=== PATIENT | male | born 1995 | race Caucasian/White ===

== ENCOUNTER 2016-07-26 12:55 | Emergency (ER) | payer OTHER ==
[2016-07-26] MEDS ORDERED: KETOROLAC TROMETHAMINE 60 MG/2 ML VIAL IM ONE (13:37)
[2016-07-26] MEDS ORDERED: cefTRIAXone SODIUM 1 GM VIAL IM ONE (14:02)
[2016-07-26] MEDS ORDERED: Lidocaine 1% 5ml(IM or SUTURE)(PAIN CLINIC) IJ ONE (14:02)
[2016-07-26 14:57] VITALS: BP 115/66
--- NOTE | 2016-07-27 05:12 | ED Physician Documentation ---
Sore Throat/Dental Pain - HISTORIAN Historian: patient - HPI Stated Complaint: body aches, headache, sore throat and non-productive cough Chief Complaint: Sore Throat Additional Information: body aches, headaches, cough Onset: days ago (1) Context: Possible Infection Associated Symptoms: fever, chills, sore throat, cough, other (hedaches) Worsened By: nothing Further Comments: no - ROS CONST: no problems CVS/RESP: none GI/: denies: problems urinating, nausea, vomiting MS/SKIN/LYMPH: denies: muscle aches, rash, leg swelling, ankle swelling NEURO/PSYCH: headache - PAST HX Past History: other (hypothyroidism) Other History: none Immunizations: referred to PCP Allergies/Adverse Reactions: Allergies Allergy/AdvReac Type Severity Reaction Status Date / Time No Known Allergies Allergy Verified 07/26/16 15:03 Home Medications: Ambulatory Orders Medication Instructions Recorded NK [NK] 07/26/16 - SOCIAL HX Smoking History: cigarettes Alcohol Use: none Drug Use: none - FAMILY HX Family History: No - VITAL SIGNS Vital Signs: Vital Signs Temp Pulse Resp BP Pulse Ox 100.3 F H 123 H 16 115/66 95 07/26/16 13:00 07/26/16 14:50 07/26/16 14:50 07/26/16 14:50 07/26/16 14:50 - REVIEWED ASSESSMENTS Nursing Assessment Reviewed: Yes Vitals Reviewed: Yes Progress - Results/Orders Results/Orders: strep, flu a and b, throat culture ordered - Progress Progress: pt. given Rocephin 1 gram IM and Toradol 60 mg IM in er Critical Care Note - Critical Care Note Total Time (mins): 0 ED Results Lab/Radiology - Lab Results Lab Results: Lab Results 07/26/16 07/26/16 13:35 13:35 Influenza Type A Ag Negative (NEGATIVE) Influenza Type B Ag Negative (NEGATIVE) Group A Strep Screen Negative (NEGATIVE) - Radiology Radiology Impressions: none ordered - Orders Orders: ED Orders Category Date Time Status INFLUENZA A&B Routine Lab 07/26/16 13:35 Completed Strep [GRP A STREP SCREEN] Routine Lab 07/26/16 13:35 Completed THROAT CULTURE Routine Lab 07/26/16 13:35 Received Ketorolac Tromethamine [Toradol] Med 07/26/16 13:37 Discontinued 60 mg IM NOW ONE Lidocaine 1% 5ml(IM or SUTURE) [Xylocaine] Med 07/26/16 14:02 Discontinued 50 mg IJ NOW ONE cefTRIAXone SODIUM [Rocephin] Med 07/26/16 14:02 Discontinued 1 gm IM NOW ONE Sore throat Physical Exam - EXAM General Appearance: moderate distress Head/Neck: head nml inspection, trachea midline, no lymphadenopathy, thyroid nml. No: pain over sinuses Eyes: eyes nml inspection, PERRL Mouth/Throat: lips nml, gums nml, pharyngeal erythema Ear/Nose: nml inspection Respiratory: no resp. distress, breath sounds nml CVS: reg. rate & rhythm, heart sounds nml Abdomen: soft, no organomegaly, normal bowel sounds, no abdominal bruit, no distension, non-tender Extremities: non-tender, nml ROM Skin: warm/dry, normal color Neuro/Psych: oriented x3, mood/affect nml Discharge Clincal Impression: Pharyngitis due to rubi influenza virus Referrals: Summer Rios MD [Primary Care Provider] - 2 Days Home Medications: Ambulatory Orders NK [NK] 07/26/16 Comments: discharged with scripts Condition: Stable Disposition: 01 HOME, SELF-CARE Decision to Admit: NO Decision Time: 14:45
== END 2016-07-26 14:50 | disposition home or self-care (01) ==
LOC: ED 12:55
DX: J02.9 Acute pharyngitis, unspecified (principal)
CPT/HCPCS: 87070; 87400; 87880; J0696; J1885; 96372; 99283

== ENCOUNTER 2016-11-14 17:26 | Emergency (ER) | payer OTHER ==
[2016-11-14 17:40] VITALS: BP 132/97
--- NOTE | 2016-11-14 18:10 | ED Physician Documentation ---
Sore Throat/Dental Pain - HISTORIAN Historian: patient - HPI Stated Complaint: DENTAL PAIN Chief Complaint: Dental Pain Additional Information: Tooth pain for weeks. Worse today. No plans to see dentist. No fever or drooling. - ROS CONST: no problems - PAST HX Past History: other (ear infections; T&A, PE tubes) Allergies/Adverse Reactions: Allergies Allergy/AdvReac Type Severity Reaction Status Date / Time No Known Allergies Allergy Verified 11/14/16 17:40 Home Medications: Ambulatory Orders Medication Instructions Recorded Amoxicillin [Trimox] 500 mg PO TID #30 capsule 11/14/16 Antidepressant Name Unk 11/14/16 traMADol HCL [Ultram] 50 mg PO Q6H PRN #20 tablet 11/14/16 traZODone HCL [Desyrel] 50 mg PO HS 11/14/16 - SOCIAL HX Smoking History: cigarettes ( PPD x 4 years) - FAMILY HX Family History: No - VITAL SIGNS Vital Signs: Vital Signs Temp Pulse Resp BP Pulse Ox 97.9 F 64 18 132/97 98 11/14/16 17:29 11/14/16 17:29 11/14/16 17:29 11/14/16 17:29 11/14/16 17:29 - REVIEWED ASSESSMENTS Nursing Assessment Reviewed: Yes Vitals Reviewed: Yes Dental Pain Physical Exam - EXAM General Appearance: alert, mild distress, other (smiling, joking. ) Head/Neck: trachea midline, cervical lymphadenopathy (1+ left, tender ), neck nml inspection, other (old blood dried on mari from nose). No: pain on palpation (R), pain on palpation (L) Eyes: other (R hstyr0no; L 4 mm. Both reactive to light) Mouth/Throat: lips nml, gums nml, pharynx nml, voice nml, no air way problems, other (very poor dentition with multiple caries, especially left mandible). No : dental tenderness Ear/Nose: nml inspection, other (TM's normal. No hemotympanum) Respiratory: breath sounds nml (No pain with AP or lateral compression chest; no vertebral or CVA tenderness) CVS: reg. rate & rhythm, heart sounds nml, murmur Abdomen: soft, no organomegaly Extremities: other (pelvis stable and non tender. Hip rotation w/o pain). No: tenderness (legs, arms) Skin: warm/dry, normal color Neuro/Psych: other (Can dorsi and plantar flex toes against resistance. reflexes 2+ throughout). No: weakness Discharge Clincal Impression: Dental caries Prescriptions: Amoxicillin [Trimox] 500 mg PO TID #30 capsule traMADol HCL [Ultram] 50 mg PO Q6H PRN #20 tablet PRN Reason: Pain Home Medications: Ambulatory Orders Amoxicillin [Trimox] 500 mg PO TID #30 capsule 11/14/16 Antidepressant Name Unk 11/14/16 traMADol HCL [Ultram] 50 mg PO Q6H PRN #20 tablet 11/14/16 traZODone HCL [Desyrel] 50 mg PO HS 11/14/16 Condition: Good Disposition: 01 HOME, SELF-CARE Decision to Admit: NO Decision Time: 18:12
== END 2016-11-14 17:55 | disposition home or self-care (01) ==
LOC: ED 17:26
DX: K02.9 Dental caries, unspecified (principal)
CPT/HCPCS: 99283

== ENCOUNTER 2019-04-30 13:03 | Emergency (ER) | payer OTHER ==
[2019-04-30 13:25] VITALS: BP 128/87
--- NOTE | 2019-04-30 13:27 | ED Physician Documentation ---
Sore Throat/Dental Pain - HISTORIAN Historian: patient - HPI Stated Complaint: sore throat Chief Complaint: Sore Throat Onset: hours (8) Associated Symptoms: sore throat, mild. denies: fever, chills, unable to swallow, runny nose, congestion, R ear pain Worsened By: nothing Further Comments: yes (he woke with sore throat had one episode of coughing this am. No fever. NO sick contacts no rash. He has not had any OTC meds today) - ROS CONST: no problems NEURO/PSYCH: none - PAST HX Past History: none Allergies/Adverse Reactions: Allergies Allergy/AdvReac Type Severity Reaction Status Date / Time No Known Allergies Allergy Verified 04/30/19 13:20 Home Medications: Ambulatory Orders Medication Instructions Recorded NK 04/30/19 - SOCIAL HX Smoking History: non-smoker Alcohol Use: none Drug Use: none - FAMILY HX Family History: No - VITAL SIGNS Vital Signs: Vital Signs Temp Pulse Resp BP Pulse Ox 98 F 74 14 128/87 95 04/30/19 13:23 04/30/19 13:23 04/30/19 13:23 04/30/19 13:23 04/30/19 13:23 - REVIEWED ASSESSMENTS Nursing Assessment Reviewed: Yes Vitals Reviewed: Yes ED Results Lab/Radiology - Orders Orders: ED Orders Category Date Time Status Rapid Strep [GRP A STREP SCREEN] Stat Lab 04/30/19 Ordered Sore throat Physical Exam - EXAM General Appearance: no acute distress, alert Head/Neck: head nml inspection Eyes: eyes nml inspection, PERRL Mouth/Throat: lips nml, pharynx nml, no air way problems, membranes nml Ear/Nose: nml inspection Respiratory: no resp. distress, breath sounds nml CVS: reg. rate & rhythm, heart sounds nml Abdomen: soft, normal bowel sounds Extremities: non-tender Skin: warm/dry, normal color Neuro/Psych: oriented x3 Discharge Clincal Impression: Sore throat Referrals: Summer Rios MD [Primary Care Provider] - 2 Days Comments: 1. OTC meds for symptom relief as directed 2. Warm salt water gargles/ warm tea with honey 3. Follow up with PCP if sore throat persists 4. Return to ER for any increased concerns Condition: Stable Disposition: 01 HOME, SELF-CARE Decision to Admit: NO Date of Decison to Admit: 04/30/19 Decision Time: 13:41
== END 2019-04-30 13:43 | disposition home or self-care (01) ==
LOC: ED 13:03
DX: J02.9 Acute pharyngitis, unspecified (principal)
CPT/HCPCS: 87070; 87880; 99282